=== PATIENT | female | born 1970 | race Two or more races ===

== ENCOUNTER 2021-05-02 06:11 | Day surgery (SDC) | payer OTHER ==
[~2021-05-02] VITALS: Ht 162.6 cm; Wt 6.8 kg
[~2021-05-02 06:11] MED LIST: FEMARA2.5 MG PO; LEVOTHYROXINE25 MCG PO
== END 2021-05-02 19:00 | disposition home or self-care (01) ==
LOC: SURH 06:11 → CIR.AMB 06:11 → O/R 06:11 → SURH 10:00 → EDSTATUS 10:00 → SURH 15:30 → CIR.AMB 19:00 → O/R 19:00
PROVIDERS: ATTEND Obstetrics & Gynecology Gynecologic Oncology
DX: N83.291 Other ovarian cyst, right side (principal); Z20.822 Contact with and (suspected) exposure to COVID-19